=== PATIENT | female | born 1965 ===

== ENCOUNTER 2016-10-07 23:17 | Observation (INO) | payer SELFPAY ==
[2016-10-07 23:17] VITALS: BMI 29.0
[2016-10-07 23:31] VITALS: RESP 16; O2SAT 100
--- NOTE | 2016-10-08 00:42 | ED PDOC ---
HPI: Chest Pain Time Seen by Provider: 10/07/16 23:25 Chief Complaint (Nursing): Chest Pain Chief Complaint (Provider): Chest pain History Per: Patient, Family (pts daughter as per pt request) History/Exam Limitations: no limitations Onset/Duration Of Symptoms: Days Current Symptoms Are (Timing): Still Present Additional Complaint(s): The patient is a 51yo female, with hx of hypertension, DM, hypercholesterolemia , presents to the ED for evaluation of chest pressure and pain, left sided radiating to her back for the past day. Patient reports associated mild shortness of breath, nausea and reports her pain to be 6/10. She denies any cough or vomiting. Patient reports taking 1 aspirin at home with mild relief. She currently offers no additional medical complaints. Of note, patient [place] and has not followed up. PCP: [facility] Against Medical Advice - AMA Patient Left Against Medical Advice: The patient declines admission to the hospital and wishes to leave the Emergency Department. This action is against my medical advice. This decision was made with informed refusal. The patient was told that admission to the hospital is necessary. Explanation of the reasons why were discussed. The risks of leaving were explained to the patient and include, but are not limited to, worsening of known or currently unknown conditions, permanent disability and from undiagnosed or untreated conditions. The patient has the capacity to make this informed decision and understands my explanation of the current medical problem and risks of leaving. The patient voluntarily accepts these risks and signed an AMA form documenting our conversation. The patient was given the opportunity to ask questions and reconsider. The patient was encouraged to return to the Emergency Department at any time for further care. Past Medical History Reviewed: Historical Data, Nursing Documentation, Vital Signs Vital Signs: Last Vital Signs Temp 98.2 F 10/08/16 01:57 Pulse 95 H 10/08/16 01:57 Resp 16 10/08/16 01:57 BP 136/80 10/08/16 01:57 Pulse Ox 100 10/08/16 02:25 - Medical History PMH: Diabetes, HTN, Hypercholesterolemia Denies: HIV, Chronic Kidney Disease - Surgical History Surgical History: (x2) Other surgeries: tummy tucks - Family History Family History: Denies: [place], CAD - Living Arrangements Living Arrangements: With Family - Social History Current smoker - smoking cessation education provided: No Alcohol: Occasional Drugs: Denies - Home Medications Home Medications: Ambulatory Orders Medication Instructions Recorded Aspirin [Adult Low Dose Aspirin EC] 81 mg PO DAILY 11/18/15 Losartan/Hydrochlorothiazide 1 each PO DAILY 11/18/15 [Losartan-Hctz 100-25 mg Tab] metFORMIN [glucOPHAGE] 500 mg PO BID 11/18/15 - Allergies Allergies/Adverse Reactions: Allergies Allergy/AdvReac Type Severity Reaction Status Date / Time No Known Allergies Allergy Verified 12/20/15 13:49 Review of Systems ROS Statement: Except As Marked, All Systems Reviewed And Found Negative Cardiovascular: Positive for: Chest Pain Respiratory: Positive for: Shortness of Breath. Negative for: Cough Gastrointestinal: Positive for: Nausea. Negative for: Vomiting Physical Exam - Reviewed Nursing Documentation Reviewed: Yes Vital Signs Reviewed: Yes - Physical Exam Appears: Positive for: Well, Non-toxic, No Acute Distress Head Exam: Positive for: ATRAUMATIC, NORMAL INSPECTION, NORMOCEPHALIC Skin: Positive for: Normal Color, Warm, DRY Eye Exam: Positive for: EOMI, Normal appearance, PERRL Neck: Positive for: Normal, Supple Cardiovascular/Chest: Positive for: Regular Rate, Rhythm. Negative for: Murmur Respiratory: Positive for: Normal Breath Sounds. Negative for: Respiratory Distress Gastrointestinal/Abdominal: Positive for: Normal Exam, Soft. Negative for: Tenderness Extremity: Positive for: Normal ROM. Negative for: Deformity, Swelling Neurologic/Psych: Positive for: Alert, Oriented. Negative for: Motor/Sensory Deficits - Laboratory Results Result Diagrams: 10/08/16 00:37 10/08/16 00:37 - ECG O2 Sat by Pulse Oximetry: 100 (RA) Pulse Ox Interpretation: Normal Medical Decision Making Medical Decision Making: Time: 001 Impression: Rule out IA in setting of extensive cardiac history Plan: -- labs -- chest x-ray -- Aspirin 325 mg PO -- Nitrostat SL tab Reassess Time: 0145 Patient to be admitted under family practice for overnight observation of her chest pain. after resident came to the er to see pt, she decided she didnt want to stay. see ama form. she understands the risk of leaving ama invluding cardiac arrest and . Scribe Attestation: Documented by Bella Lima acting as a scribe for Coleen Dutta MD. Provider Attestation: All medical record entries made by the Scribe were at my direction and personally dictated by me. I have reviewed the chart and agree that the record accurately reflects my personal performance of the history, physical exam, medical decision making, and the department course for this patient. I have also personally directed, reviewed, and agree with the discharge instructions and disposition. Disposition - Clinical Impression Clinical Impression: Chest pain, Left against medical advice - Patient ED Disposition Is Patient to be Admitted: No - Disposition Disposition: Against Medical Advice Disposition Time: 14:00 Condition: IMPROVED
[2016-10-08 00:56] LABS: BASO # 0.1 K/uL (0.0-0.2); BASO % 0.8 % (0.0-2.0); EOS # 0.2 K/uL (0.0-0.7); EOS % 2.4 % (0.0-4.0); HEMATOCRIT 40.1 % (34.0-47.0); LYMPH # 3.7 K/uL (1.0-4.3); LYMPH % 43.9 % (20.0-40.0); MEAN CELL VOLUME 90.8 fl (81.0-99.0); MEAN CORPUSCULAR HEMOGLOBIN 30.4 pg (27.0-31.0); MEAN CORPUSCULAR HGB CONC 33.5 g/dL (33.0-37.0); MEAN PLATELET VOLUME 9.5 fl (7.2-11.7); MONO # 0.6 K/uL (0.0-0.8); NEUT # 3.9 K/uL (1.8-7.0); NEUT % 45.9 % (50.0-75.0); RED CELL DISTRIBUTION WIDTH 13.3 % (11.5-14.5); WHITE BLOOD COUNT 8.5 K/uL (4.8-10.8)
[2016-10-08 01:08] LABS: ALB/GLOB RATIO 1.3 (1.0-2.1); ALKALINE PHOSPHATASE 47 U/L (38-126); ALT/SGPT 79 U/L (9-52); AST/SGOT 41 U/L (14-36); BILIRUBIN,TOTAL 0.6 mg/dl (0.2-1.3); BLOOD UREA NITROGEN 10 mg/dl (7-17); CALCIUM 9.1 mg/dL (8.4-10.2); CARBON DIOXIDE 28 mmol/L (22-30); CHLORIDE 101 mmol/L (98-107); GFR AFRICAN-AMERICAN > 60; GLUCOSE,RANDOM 119 mg/dL (65-105); LIPASE 128 U/L (23-300); POTASSIUM 3.8 MMOL/L (3.6-5.0); SODIUM 139 mmol/l (132-148); TOTAL PROTEIN 7.9 G/DL (6.3-8.2)
[2016-10-08] MEDS ORDERED: Labetalol 5 mg/ml Inj 20ML IVP STA (01:49)
[2016-10-08 01:57] VITALS: BP 136/80; PULSE 95; TEMP 98.2
--- NOTE | 2016-10-08 08:38 | RAD ---
HISTORY: chest pain COMPARISON: 11/17/2015. TECHNIQUE: Chest PA and lateral FINDINGS: LUNGS: No active pulmonary disease. PLEURA: No significant pleural effusion identified. No pneumothorax apparent. CARDIOVASCULAR: No radiographic findings to suggest acute or significant cardiovascular disease. OSSEOUS STRUCTURES: No significant abnormalities. VISUALIZED UPPER ABDOMEN: Normal. OTHER FINDINGS: None. IMPRESSION: No active disease. No significant interval change compared to the prior examination(s). No preliminary report provided by emergency department personnel.
--- NOTE | 2016-10-08 17:43 | CARD ---
APPROVED REPORT EKG Measurement Heart [id number] <Conclusion> Normal sinus rhythm Normal ECG
== END 2016-10-08 02:55 | disposition left against medical advice (07) ==
LOC: H.ER 23:17 → H.ERHOLD 10-08 01:44
PROVIDERS: ADMIT Family Medicine Geriatric Medicine; ATTEND Family Medicine Geriatric Medicine
DX: R07.9 Chest pain, unspecified (principal); I10 Essential (primary) hypertension; E11.9 Type 2 diabetes mellitus without complications; E78.00 Pure hypercholesterolemia, unspecified

== ENCOUNTER 2017-02-17 10:39 | Day surgery (SDC) | payer SELFPAY ==
[2017-02-17] MEDS ORDERED: Lactated Ringer's 1,000 ML IV ONE (11:11)
[2017-02-17 11:27] VITALS: TEMP 97
[2017-02-17] MEDS ORDERED: Propofol 10 mg/ml Inj (20 ML) ONE (11:33)
[2017-02-17] MEDS ORDERED: Lidocaine 2% MPF (5 ml) Inj ONE (11:34)
[2017-02-17 12:19] VITALS: BP 104/67; PULSE 70; RESP 14; O2SAT 100
== END 2017-02-17 13:01 | disposition home or self-care (01) ==
LOC: H.ENDO 10:39
PROVIDERS: ATTEND Internal Medicine Gastroenterology
DX: Z12.11 Encounter for screening for malignant neoplasm of colon (principal); E11.9 Type 2 diabetes mellitus without complications; E78.5 Hyperlipidemia, unspecified; I10 Essential (primary) hypertension; K64.0 First degree hemorrhoids
CPT/HCPCS: 45378; J2704; J7120

== ENCOUNTER 2017-02-18 | Emergency (ER) | payer SELFPAY ==
[2017-02-18 00:02] VITALS: BMI 29.0
[2017-02-18 00:31] VITALS: BP 130/85; PULSE 79; RESP 17; TEMP 98.2; O2SAT 100
[2017-02-18] MEDS ORDERED: Sterile Water 10 ML IV ONE (00:32)
[2017-02-18] MEDS ORDERED: Sodium Chloride 0.9% 1,000 ML IV STA (00:32)
[2017-02-18 00:50] LABS: BASO # 0.1 K/uL (0.0-0.2); BASO % 1.1 % (0.0-2.0); EOS # 0.1 K/uL (0.0-0.7); EOS % 1.4 % (0.0-4.0); HEMATOCRIT 39.4 % (34.0-47.0); LYMPH # 3.4 K/uL (1.0-4.3); LYMPH % 39.9 % (20.0-40.0); MEAN CELL VOLUME 90.3 fl (81.0-99.0); MEAN CORPUSCULAR HEMOGLOBIN 30.3 pg (27.0-31.0); MEAN CORPUSCULAR HGB CONC 33.5 g/dL (33.0-37.0); MEAN PLATELET VOLUME 9.7 fl (7.2-11.7); MONO # 0.7 K/uL (0.0-0.8); MONO % 8.1 % (0.0-10.0); NEUT # 4.3 K/uL (1.8-7.0); NEUT % 49.5 % (50.0-75.0); NRBC % 0.2 % (0.0-0.0); RED CELL DISTRIBUTION WIDTH 13.5 % (11.5-14.5); WHITE BLOOD COUNT 8.6 K/uL (4.8-10.8)
--- NOTE | 2017-02-18 00:54 | ED PDOC ---
HPI: Abdomen Time Seen by Provider: 02/18/17 00:13 Chief Complaint (Nursing): Abdominal Pain Chief Complaint (Provider): Abdominal Pain History Per: Patient History/Exam Limitations: no limitations Onset/Duration Of Symptoms: Days (x1) Current Symptoms Are (Timing): Still Present Additional Complaint(s): Alison Jones is a 52 year old female with a past medical history of hypertension and diabetes, who presents to the ED complaining of epigastric pain x1 day. Patient had a routine colonoscopy today. States she went home afterwards and developed epigastric pain after eating rice and beans. Confirms vomiting x1. Patient reports she has been able to pass gas, but has not had a bowel movement yet. Denies fever and chills. PMD: Dr. Ling Carter MD Past Medical History Reviewed: Historical Data, Nursing Documentation, Vital Signs Vital Signs: Last Vital Signs Temp 98.2 F 02/18/17 00:13 Pulse 79 02/18/17 00:13 Resp 17 02/18/17 00:13 BP 130/85 02/18/17 00:13 Pulse Ox 100 02/18/17 04:22 - Medical History PMH: Diabetes, HTN, Hypercholesterolemia Denies: HIV, Chronic Kidney Disease - Surgical History Surgical History: (x2) - Family History Family History: Denies: [place], CAD - Home Medications Home Medications: Ambulatory Orders Medication Instructions Recorded Losartan/Hydrochlorothiazide 1 each PO DAILY 11/18/15 [Losartan-Hctz 100-25 mg Tab] metFORMIN [glucOPHAGE] 500 mg PO BID 11/18/15 Amoxicillin [Amoxil 250 mg Cap] 250 mg PO DAILY 02/17/17 Atorvastatin [Lipitor] 40 mg PO DAILY 02/17/17 Clarithromycin [Biaxin Filmtab] 500 mg PO DAILY 02/17/17 Omeprazole 20 mg PO DAILY 02/17/17 Simethicone [Gas Relief] 80 mg PO BID #30 tab.chew 02/18/17 Sod Phos,M-B/Na Phos,Di-Ba [Fleet 135 ml RC DAILY #3 enema 02/18/17 Enema] - Allergies Allergies/Adverse Reactions: Allergies Allergy/AdvReac Type Severity Reaction Status Date / Time No Known Allergies Allergy Verified 12/20/15 13:49 Review of Systems ROS Statement: Except As Marked, All Systems Reviewed And Found Negative Constitutional: Negative for: Fever, Chills Gastrointestinal: Positive for: Vomiting (x1), Abdominal Pain (epigastric) Physical Exam - Reviewed Nursing Documentation Reviewed: Yes Vital Signs Reviewed: Yes - Physical Exam Appears: Positive for: Non-toxic, No Acute Distress Head Exam: Positive for: ATRAUMATIC, NORMAL INSPECTION, NORMOCEPHALIC Skin: Positive for: Normal Color, Warm, DRY Eye Exam: Positive for: EOMI, Normal appearance, PERRL Neck: Positive for: Normal, Painless ROM Cardiovascular/Chest: Positive for: Regular Rate, Rhythm. Negative for: Murmur Respiratory: Positive for: Normal Breath Sounds. Negative for: Respiratory Distress Gastrointestinal/Abdominal: Positive for: Soft, Tenderness (epigastric). Negative for: Guarding, Rebound Back: Positive for: Normal Inspection. Negative for: L CVA Tenderness, R CVA Tenderness, Vertebral Tenderness Extremity: Positive for: Normal ROM. Negative for: Pedal Edema, Deformity Neurologic/Psych: Positive for: Alert, Oriented (x3). Negative for: Motor/ Sensory Deficits - Laboratory Results Result Diagrams: 02/18/17 00:45 02/18/17 00:45 - ECG O2 Sat by Pulse Oximetry: 100 (RA) Pulse Ox Interpretation: Normal Medical Decision Making Medical Decision Making: Time: 00:31 Initial Impression: Gastritis vs pancreatitis vs irritation from colonoscopy Plan: --CMP --Lipase --CBC w/ differential --Sodium Chloride 0.9% 1,000 ml IV --Protonix Inj 40 mg IVP --IV Insertion --Reevaluation Time: 04:17 --Upon provider reevaluation patient is feeling better, is medically stable, and requires no further treatment in the ED at this time. Patient will be discharged with Rx for Simethicone and a Fleet enema. Counseling was provided and all questions were answered regarding diagnosis and need for follow up with PMD. There is agreement to discharge plan. Return if symptoms persist or worsen. Scribe Attestation: Documented by Luigi Elena acting as a scribe for Que Gagnon MD. Scribe Attestation: All medical record entries made by the Scribe were at my direction and personally dictated by me. I have reviewed the chart and agree that the record accurately reflects my personal performance of the history, physical exam, medical decision making, and the department course for this patient. I have also personally directed, reviewed, and agree with the discharge instructions and disposition. Disposition - Clinical Impression Clinical Impression: Bloating - Patient ED Disposition Is Patient to be Admitted: No Counseled Patient/Family Regarding: Diagnosis, Need For Followup, Rx Given - Disposition Referrals: Ling Carter MD [Primary Care Provider] - Disposition: Routine/Home Disposition Time: 04:18 Condition: STABLE Prescriptions: Simethicone [Gas Relief] 80 mg PO BID #30 tab.chew Sod Phos,M-B/Na Phos,Di-Ba [Fleet Enema] 135 ml RC DAILY #3 enema Instructions: Gas and Bloating (ED) Forms: [employer] (Barbadian) Print Language: CHINESE
[2017-02-18 01:01] LABS: ALB/GLOB RATIO 1.3 (1.0-2.1); ALKALINE PHOSPHATASE 47 U/L (38-126); ALT/SGPT 90 U/L (9-52); AST/SGOT 52 U/L (14-36); BILIRUBIN,TOTAL 0.6 mg/dl (0.2-1.3); BLOOD UREA NITROGEN 9 mg/dl (7-17); CALCIUM 9.4 mg/dL (8.4-10.2); CARBON DIOXIDE 31 mmol/L (22-30); CHLORIDE 99 mmol/L (98-107); GFR AFRICAN-AMERICAN > 60; GLUCOSE,RANDOM 169 mg/dL (65-105); LIPASE 185 U/L (23-300); POTASSIUM 4.1 MMOL/L (3.6-5.0); SODIUM 140 mmol/l (132-148); TOTAL PROTEIN 8.1 G/DL (6.3-8.2)
[2017-02-18] MEDS ORDERED: Simethicone 40 mg/0.6 ml Liquid (30 ml) PO STA ×2 (03:11)
[2017-02-18] MEDS ORDERED: Simethicone 80 mg Chewtab PO STA (03:28)
== END 2017-02-18 04:24 | disposition home or self-care (01) ==
LOC: H.ER
DX: R14.0 Abdominal distension (gaseous) (principal); E11.9 Type 2 diabetes mellitus without complications; E78.00 Pure hypercholesterolemia, unspecified; I10 Essential (primary) hypertension; Z79.84 Long term (current) use of oral hypoglycemic drugs
CPT/HCPCS: 80053; 82948; 83690; 85025; 96374; 96375; 99283; C9113; J7040

== ENCOUNTER 2017-04-18 20:42 | Observation (INO) | payer SELFPAY ==
[2017-04-18 20:42] VITALS: BMI 29.0
[2017-04-18] MEDS ORDERED: Sodium Chloride 0.9% 1,000 ML IV STA (21:42)
--- NOTE | 2017-04-18 22:02 | ED PDOC ---
Syncope/Near Syncope/Dizziness Additional Complaint(s): 52 yo female pmhx DMII, HTN, hyperlipidemia and gastritis presents to ED w/ c/o lightheadedness and generalized weakness since this afternoon. Pt reports she felt weak all day today. Pt reports pressure on her chest after dizziness. Denies LOC or headache. Denies dyspnea, cough, rhinorrhea, sore throat, or fever. Pt also reports dysuria and hematuria that started a week ago but resolved on its own but symptoms returned yesterday. Reports lower abdominal pain and felt nauseous last night. Denies any vomiting or flank pain. PMD: Dr. Carter (last visit on 03/30/17). <Sultan Anant - Last Filed: 04/19/17 02:23> <Que Gagnon - Last Filed: 04/19/17 07:27> Time Seen by Provider: 04/18/17 20:59 Chief Complaint (Nursing): Dizziness/Lightheaded Supervising Attending Note - Attestation: I have personally seen and examined this patient.: Yes I have fully participated in the care of the patient.: Yes I have reviewed all pertinent clinical information: Yes <Que Gagnon - Last Filed: 04/19/17 07:27> Past Medical History Vital Signs: Last Vital Signs Temp 98.2 F 04/18/17 20:43 Pulse 102 H 04/18/17 20:43 Resp 16 04/18/17 20:43 BP 171/81 H 04/18/17 20:43 Pulse Ox 98 04/18/17 20:43 - Medical History PMH: Diabetes, HTN, Hypercholesterolemia Denies: HIV, Chronic Kidney Disease - Surgical History Surgical History: (x2) - Family History Family History: Denies: [place], CAD - Social History Current smoker - smoking cessation education provided: No Alcohol: None Drugs: Denies <Sultan Anant - Last Filed: 04/19/17 02:23> Vital Signs: Last Vital Signs Temp 98.0 F 04/19/17 06:34 Pulse 72 04/19/17 06:34 Resp 14 04/19/17 06:34 BP 128/82 04/19/17 06:34 Pulse Ox 98 04/19/17 06:34 <Que Gagnon - Last Filed: 04/19/17 07:27> - Home Medications Home Medications: Ambulatory Orders Medication Instructions Recorded Losartan/Hydrochlorothiazide 1 each PO DAILY 11/18/15 [Losartan-Hctz 100-25 mg Tab] metFORMIN [glucOPHAGE] 500 mg PO BID 11/18/15 - Allergies Allergies/Adverse Reactions: Allergies Allergy/AdvReac Type Severity Reaction Status Date / Time No Known Allergies Allergy Verified 04/18/17 20:43 Review of Systems Constitutional: Negative for: Fever Eyes: Negative for: Vision Change Cardiovascular: Negative for: Palpitations Respiratory: Negative for: Cough, Shortness of Breath Gastrointestinal: Positive for: Nausea, Abdominal Pain. Negative for: Vomiting Genitourinary Female: Positive for: Dysuria, Hematuria Skin: Negative for: Rash Neurological: Negative for: Headache <Sultan Anant - Last Filed: 04/19/17 02:23> Physical Exam - Physical Exam Appears: Positive for: No Acute Distress Head Exam: Positive for: ATRAUMATIC, NORMOCEPHALIC Eye Exam: Positive for: EOMI, PERRL ENT: Positive for: Normal ENT Inspection. Negative for: Pharyngeal Erythema Neck: Positive for: Normal Cardiovascular/Chest: Positive for: Regular Rate, Rhythm. Negative for: Murmur Respiratory: Positive for: Normal Breath Sounds. Negative for: Crackles, Wheezing Gastrointestinal/Abdominal: Positive for: Bowel Sounds, Soft, Tenderness ( Moderate suprapubic tenderness) Back: Negative for: L CVA Tenderness, R CVA Tenderness Extremity: Positive for: Normal ROM Neurologic/Psych: Positive for: Alert, life skills specialist II-XII, Oriented. Negative for: Motor/Sensory Deficits, Aphasia, Facial Droop <Sultan Anant - Last Filed: 04/19/17 02:23> - Laboratory Results Result Diagrams: 04/18/17 22:20 04/18/17 22:20 - ECG ECG: Positive for: Interpreted By Me ECG Rhythm: Positive for: Normal QRS, Normal ST Segment. Negative for: ST/T Changes O2 Sat by Pulse Oximetry: 98 - Radiology X-Ray: Interpreted by Me X-Ray Interpretation: No Acute Disease - Progress ED Course And Treament: Assessment: 52 yo female pmhx DMII, HTN, hyperlipidemia presents with c/o lightheadedness, generalized weakness x 1 day and dysuria and suprapubic pain x 1 week. Plan: EKG TROPONIN I CXR BMP CBC PT/INR UA Rapid influenza test NS 0.9% 1000 cc bolus Re-evaluation Case d/w ED attending Dr. Gagnon Re-evaluation: 23:30 on 04/18/17 Pt reports she still has chest pressure. EKG: NSR, no acute ST/T wave changes. Troponin x1 negative. Pt will be admitted under family medicine service to telemetry for further cardiac observation and to r/o ACS. Case d/w with ED attending Dr. Gagnon. <Sultan Anant - Last Filed: 04/19/17 02:23> - Laboratory Results Result Diagrams: 04/18/17 22:20 04/18/17 22:20 <Que Gagnon - Last Filed: 04/19/17 07:27> Disposition - Patient ED Disposition Is Patient to be Admitted: Yes - Disposition Disposition Time: 02:29 <Sultan Anant - Last Filed: 04/19/17 02:23> <Que Gagnon - Last Filed: 04/19/17 07:27> - Clinical Impression Clinical Impression: Dizziness, Chest pain - Disposition Condition: FAIR
[2017-04-18 22:26] LABS: BASO # 0.1 K/uL (0.0-0.2); BASO % 1.5 % (0.0-2.0); EOS # 0.1 K/uL (0.0-0.7); EOS % 1.4 % (0.0-4.0); HEMOGLOBIN 12.7 g/dL (12.0-16.0); LYMPH # 2.6 K/uL (1.0-4.3); LYMPH % 36.3 % (20.0-40.0); MEAN CELL VOLUME 89.3 fl (81.0-99.0); MEAN CORPUSCULAR HEMOGLOBIN 29.8 pg (27.0-31.0); MEAN CORPUSCULAR HGB CONC 33.4 g/dL (33.0-37.0); MEAN PLATELET VOLUME 9.4 fl (7.2-11.7); MONO # 0.6 K/uL (0.0-0.8); MONO % 8.2 % (0.0-10.0); NEUT # 3.8 K/uL (1.8-7.0); NEUT % 52.6 % (50.0-75.0); NRBC % 0.1 % (0.0-0.0); RBC 4.26 Mil/uL (3.80-5.20); RED CELL DISTRIBUTION WIDTH 13.3 % (11.5-14.5); WHITE BLOOD COUNT 7.2 K/uL (4.8-10.8)
[2017-04-18 22:38] LABS: BLOOD UREA NITROGEN 14 mg/dl (7-17); CALCIUM 9.1 mg/dL (8.4-10.2); GFR AFRICAN-AMERICAN > 60; GFR NON-AFRICAN AMERICAN > 60
[2017-04-18 23:10] LABS: SQUAMOUS EPITHIAL 3 /hpf (0-5); URINE BILIRUBIN NEGATIVE (NEGATIVE); URINE BLOOD SMALL (NEGATIVE); URINE CLARITY SLIGHTY-CLOUDY (Clear); URINE COLOR STRAW (YELLOW); URINE GLUCOSE (UA) NEG (Normal); URINE LEUKOCYTE ESTERASE SMALL Leu/uL (Negative); URINE NITRATE NEGATIVE (NEGATIVE); URINE PROTEIN NEGATIVE (NEGATIVE); URINE UROBILINOGEN 0.2-1.0 mg/dL (0.2-1.0)
[2017-04-18 23:57] LABS: PROTHROMBIN TIME 11.1 Seconds (9.8-13.1)
[2017-04-19 00:17] LABS: PARTIAL THROMBOPLASTIN TIME 30.7 Seconds (25.6-37.1)
--- NOTE | 2017-04-19 00:58 | CP.PCM.HP ---
Addendum entered and electronically signed by Windy Guo MD 04/19/17 03:04 : Patient has had multiple admission for ruling out of chest pain. Patient had an Echo done in September of 2015 w/ an EF of 65-70%. Nuclear perfusion scan was done in September 2013, in which patient was able to reach taget HR and test showed normal perfusion w/ no significant EKG changes. She was seen by cardio Dr. Gandhi on 10/2016, he had reassured patient that her chest pain is benign and there is no further testing that needs to be done. Chest pain seems to be anxiety provoked. Original Note: <Windy Guo - Last Filed: 04/19/17 01:21> History of Present Illness - History of Present Illness History of Present Illness: 52 YO F w/ PMH of DM II, HTN, hyperlipidemia and gastritis presents to the ED for light headedness and weakness after she drank some soup with her family. Nobody else had similar symptoms. Denies any falls or head trauma. Patient also started having some chest pressure, rates it at a 4/10 does not radiate anywhere. Denies any palpitation, SOB, LOC or headache. - Patient has been having some burning with urination which started last week, she has also noticed a increase in frequency, and noticed some blood in the urine. Denies any chills, fevers, nausea or vomiting. PMH: DM2, HLD, HTN, gastritis PSH: C section x 2 Allergies: Denies FH: non contributory PMD. Dr. Carter Present on Admission - Present on Admission Any Indicators Present on Admission: No Review of Systems - Review of Systems All systems: reviewed and no additional remarkable complaints except Past Patient History - Past Medical History & Family History Past Medical History?: Yes - Past Social History Smoking Status: Never Smoked - CARDIAC Hx Hypercholesterolemia: Yes Hx Hypertension: Yes - PULMONARY Hx Respiratory Disorders: No - NEUROLOGICAL Hx Neurological Disorder: No - HEENT Hx HEENT Problems: No - RENAL Hx Chronic Kidney Disease: No - ENDOCRINE/METABOLIC Hx Endocrine Disorders: Yes Hx Diabetes Mellitus Type 2: Yes - HEMATOLOGICAL/ONCOLOGICAL Hx Human Immunodeficiency Virus (HIV): No - INTEGUMENTARY Hx Dermatological Problems: No - MUSCULOSKELETAL/RHEUMATOLOGICAL Hx Musculoskeletal Disorders: No - GASTROINTESTINAL Hx Gastrointestinal Disorders: No - GENITOURINARY/GYNECOLOGICAL Hx Genitourinary Disorders: No - PSYCHIATRIC Hx Emotional Abuse: No Hx Physical Abuse: No Hx Substance Use: No - SURGICAL HISTORY Hx Hysterectomy: Yes Other/Comment: ABDOMINAL PLASTY, BLADDER SURGERY - ANESTHESIA Hx Anesthesia: Yes Hx Anesthesia Reactions: No Hx Malignant Hyperthermia: No Meds Allergies/Adverse Reactions: Allergies Allergy/AdvReac Type Severity Reaction Status Date / Time No Known Allergies Allergy Verified 04/18/17 20:43 Physical Exam - Constitutional Appears: No Acute Distress - Head Exam Head Exam: NORMAL INSPECTION - Eye Exam Eye Exam: Normal appearance - ENT Exam ENT Exam: Mucous Membranes Moist - Respiratory Exam Respiratory Exam: Clear to Auscultation Bilateral, NORMAL BREATHING PATTERN. absent: Rhonchi, Wheezes - Cardiovascular Exam Cardiovascular Exam: REGULAR RHYTHM, +S1, +S2 Additional comments: slight reproducible tenderness on left side of chest 4th intercostal region - GI/Abdominal Exam GI & Abdominal Exam: Normal Bowel Sounds, Soft, Tenderness (suprapubic tenderness) - Extremities Exam Extremities exam: Positive for: normal inspection. Negative for: calf tenderness - Neurological Exam Neurological exam: Alert, CN II-XII Intact, Normal Gait, Oriented x3 - Skin Skin Exam: Normal Color, Warm Results - Vital Signs Recent Vital Signs: Last Vital Signs Temp 98.2 F 04/18/17 20:43 Pulse 76 04/19/17 00:17 Resp 16 04/19/17 00:17 BP 135/77 04/19/17 00:17 Pulse Ox 100 04/19/17 00:17 - Labs Result Diagrams: 04/18/17 22:20 04/18/17 22:20 Labs: Laboratory Results - last 24 hr 04/18/17 04/18/17 04/18/17 22:20 22:20 22:20 WBC 7.2 RBC 4.26 Hgb 12.7 Hct 38.1 MCV 89.3 MCH 29.8 MCHC 33.4 RDW 13.3 Plt Count 261 MPV 9.4 Neut % (Auto) 52.6 Lymph % (Auto) 36.3 [place] % (Auto) 8.2 Eos % (Auto) 1.4 Baso % (Auto) 1.5 Neut # (Auto) 3.8 Lymph # (Auto) 2.6 [place] # (Auto) 0.6 Eos # (Auto) 0.1 Baso # (Auto) 0.1 PT 11.1 INR 1.0 APTT 30.7 Sodium 142 Potassium 4.1 Chloride 105 Carbon Dioxide 28 Anion Gap 13 BUN 14 Creatinine 0.7 Est GFR ( Amer) > 60 Est GFR (Non-Af Amer) > 60 Random Glucose 104 Calcium 9.1 Troponin I < 0.0120 Urine Color Urine Clarity Urine pH Ur Specific [place] Urine Protein Urine Glucose (UA) Urine Ketones Urine Blood Urine Nitrate Urine Bilirubin Urine Urobilinogen Ur Leukocyte Esterase Urine RBC (Auto) Urine Microscopic WBC Ur Squamous Epith Cells 04/18/17 22:20 WBC RBC Hgb Hct MCV MCH MCHC RDW Plt Count MPV Neut % (Auto) Lymph % (Auto) [place] % (Auto) Eos % (Auto) Baso % (Auto) Neut # (Auto) Lymph # (Auto) [place] # (Auto) Eos # (Auto) Baso # (Auto) PT INR APTT Sodium Potassium Chloride Carbon Dioxide Anion Gap BUN Creatinine Est GFR ( Amer) Est GFR (Non-Af Amer) Random Glucose Calcium Troponin I Urine Color Straw Urine Clarity Slighty-cloudy Urine pH 6.0 Ur Specific [place] 1.009 Urine Protein Negative Urine Glucose (UA) Neg Urine Ketones Negative Urine Blood Small Urine Nitrate Negative Urine Bilirubin Negative Urine Urobilinogen 0.2-1.0 Ur Leukocyte Esterase Small Urine RBC (Auto) 6 H Urine Microscopic WBC 25 H Ur Squamous Epith Cells 3 Assessment & Plan - Assessment and Plan (Free Text) Assessment: 52 YO F presents to the ER with chest pressure and burning with urination 1) Chest pressure ( resolved) - Troponin x 1 neg - EKG : Normal sinus rhythum - F/U with troponin 2) Dysuria and cystitis - C/W Cipro 500mg x 3 days 3) DM2 - Continue with home meds 4) HTN - C/W home meds 5) DVE prophylaxis SCD and ambulation <Josefina Neely - Last Filed: 04/19/17 09:02> Results - Vital Signs Recent Vital Signs: Last Vital Signs Temp 98.0 F 04/19/17 06:34 Pulse 72 04/19/17 06:34 Resp 14 04/19/17 06:34 BP 128/82 04/19/17 06:34 Pulse Ox 98 04/19/17 06:34 - Labs Result Diagrams: 04/18/17 22:20 04/18/17 22:20 Labs: Laboratory Results - last 24 hr 04/18/17 04/18/17 04/18/17 22:20 22:20 22:20 WBC 7.2 RBC 4.26 Hgb 12.7 Hct 38.1 MCV 89.3 MCH 29.8 MCHC 33.4 RDW 13.3 Plt Count 261 MPV 9.4 Neut % (Auto) 52.6 Lymph % (Auto) 36.3 [place] % (Auto) 8.2 Eos % (Auto) 1.4 Baso % (Auto) 1.5 Neut # (Auto) 3.8 Lymph # (Auto) 2.6 [place] # (Auto) 0.6 Eos # (Auto) 0.1 Baso # (Auto) 0.1 PT 11.1 INR 1.0 APTT 30.7 Sodium 142 Potassium 4.1 Chloride 105 Carbon Dioxide 28 Anion Gap 13 BUN 14 Creatinine 0.7 Est GFR ( Amer) > 60 Est GFR (Non-Af Amer) > 60 POC Glucose (mg/dL) Random Glucose 104 Calcium 9.1 Troponin I < 0.0120 Urine Color Urine Clarity Urine pH Ur Specific [place] Urine Protein Urine Glucose (UA) Urine Ketones Urine Blood Urine Nitrate Urine Bilirubin Urine Urobilinogen Ur Leukocyte Esterase Urine RBC (Auto) Urine Microscopic WBC Ur Squamous Epith Cells Influenza Typ A,B (EIA) 04/18/17 04/19/17 04/19/17 22:20 00:07 05:50 WBC RBC Hgb Hct MCV MCH MCHC RDW Plt Count MPV Neut % (Auto) Lymph % (Auto) [place] % (Auto) Eos % (Auto) Baso % (Auto) Neut # (Auto) Lymph # (Auto) [place] # (Auto) Eos # (Auto) Baso # (Auto) PT INR APTT Sodium Potassium Chloride Carbon Dioxide Anion Gap BUN Creatinine Est GFR ( Amer) Est GFR (Non-Af Amer) POC Glucose (mg/dL) Random Glucose Calcium Troponin I < 0.0120 Urine Color Straw Urine Clarity Slighty-cloudy Urine pH 6.0 Ur Specific [place] 1.009 Urine Protein Negative Urine Glucose (UA) Neg Urine Ketones Negative Urine Blood Small Urine Nitrate Negative Urine Bilirubin Negative Urine Urobilinogen 0.2-1.0 Ur Leukocyte Esterase Small Urine RBC (Auto) 6 H Urine Microscopic WBC 25 H Ur Squamous Epith Cells 3 Influenza Typ A,B (EIA) Negative for flu a/b 04/19/17 08:51 WBC RBC Hgb Hct MCV MCH MCHC RDW Plt Count MPV Neut % (Auto) Lymph % (Auto) [place] % (Auto) Eos % (Auto) Baso % (Auto) Neut # (Auto) Lymph # (Auto) [place] # (Auto) Eos # (Auto) Baso # (Auto) PT INR APTT Sodium Potassium Chloride Carbon Dioxide Anion Gap BUN Creatinine Est GFR ( Amer) Est GFR (Non-Af Amer) POC Glucose (mg/dL) 107 Random Glucose Calcium Troponin I Urine Color Urine Clarity Urine pH Ur Specific [place] Urine Protein Urine Glucose (UA) Urine Ketones Urine Blood Urine Nitrate Urine Bilirubin Urine Urobilinogen Ur Leukocyte Esterase Urine RBC (Auto) Urine Microscopic WBC Ur Squamous Epith Cells Influenza Typ A,B (EIA) Attending/Attestation - Attestation Notes (Text): 04/19/17 09:01 ATTENDING NOTE - ATTESTATION CHART REVIEWED. CASE DISCUSSED AT LENGTH WITH MARKO. AGREE WITH PLAN TO ADMIT FOR SERIAL EKG/TROPONINS WELL ANTIOBIOTIC FOR UTI.
[2017-04-19 06:35] VITALS: TEMP 98
[2017-04-19] MEDS ORDERED: Pantoprazole 20 mg EC Tab PO SCH (09:00)
--- NOTE | 2017-04-19 11:12 | CP.PCM.DIS ---
<Deep Brasher - Last Filed: 04/19/17 11:09> Provider - Provider Date of Admission: 04/18/17 22:52 Attending physician: Josefina Neely MD Time Spent in preparation of Discharge (in minutes): 25 Hospital Course - Lab Results Lab Results: Most Recent Lab Values WBC 7.2 K/uL (4.8-10.8) 04/18/17 22:20 RBC 4.26 Mil/uL (3.80-5.20) 04/18/17 22:20 Hgb 12.7 g/dL (12.0-16.0) 04/18/17 22:20 Hct 38.1 % (34.0-47.0) 04/18/17 22:20 MCV 89.3 fl (81.0-99.0) 04/18/17 22:20 MCH 29.8 pg (27.0-31.0) 04/18/17 22:20 MCHC 33.4 g/dL (33.0-37.0) 04/18/17 22:20 RDW 13.3 % (11.5-14.5) 04/18/17 22:20 Plt Count 261 K/uL (130-400) 04/18/17 22:20 MPV 9.4 fl (7.2-11.7) 04/18/17 22:20 Neut % (Auto) 52.6 % (50.0-75.0) 04/18/17 22:20 Lymph % (Auto) 36.3 % (20.0-40.0) 04/18/17:20 [place] % (Auto) 8.2 % (0.0-10.0) 04/18/17 22:20 Eos % (Auto) 1.4 % (0.0-4.0) 04/18/17 22:20 Baso % (Auto) 1.5 % (0.0-2.0) 04/18/17 22:20 Neut # (Auto) 3.8 K/uL (1.8-7.0) 04/18/17 22:20 Lymph # (Auto) 2.6 K/uL (1.0-4.3) 04/18/17 22:20 [place] # (Auto) 0.6 K/uL (0.0-0.8) 02/10/18 22:20 Eos # (Auto) 0.1 K/uL (0.0-0.7) 04/18/17 22:20 Baso # (Auto) 0.1 K/uL (0.0-0.2) 04/18/17 22:20 PT 11.1 Seconds (9.8-13.1) 04/18/17 22:20 INR 1.0 (0.9-1.2) 04/18/17 22:20 APTT 30.7 Seconds (25.6-37.1) 04/18/17 22:20 Sodium 142 mmol/l (132-148) 04/18/17 22:20 Potassium 4.1 MMOL/L (3.6-5.0) 04/18/17 22:20 Chloride 105 mmol/L (98-107) 04/18/17 22:20 Carbon Dioxide 28 mmol/L (22-30) 04/18/17 22:20 Anion Gap 13 (10-20) 04/18/17 22:20 BUN 14 mg/dl (7-17) 04/18/17 22:20 Creatinine 0.7 mg/dl (0.7-1.2) 04/18/17 22:20 Est GFR ( Amer) > 60 04/18/17 22:20 Est GFR (Non-Af Amer) > 60 04/18/17 22:20 POC Glucose (mg/dL) 107 mg/dL (65-110) 04/19/17 08:51 Random Glucose 104 mg/dL (65-105) 04/18/17 22:20 Calcium 9.1 mg/dL (8.4-10.2) 04/18/17 22:20 Troponin I < 0.0120 ng/mL (0.00-0.120) 04/19/17 05:50 Urine Color Straw (YELLOW) 04/18/17 22:20 Urine Clarity Slighty-cloudy (Clear) 04/18/17 22:20 Urine pH 6.0 (5.0-8.0) 04/18/17 22:20 Ur Specific [place] 1.009 (1.003-1.030) 04/18/17 22:20 Urine Protein Negative mg/dL (NEGATIVE) 04/18/17 22:20 Urine Glucose (UA) Neg mg/dL (Normal) 04/18/17 22:20 Urine Ketones Negative mg/dL (NEGATIVE) 04/18/17 22:20 Urine Blood Small (NEGATIVE) 04/18/17 22:20 Urine Nitrate Negative (NEGATIVE) 04/18/17 22:20 Urine Bilirubin Negative (NEGATIVE) 04/18/17 22:20 Urine Urobilinogen 0.2-1.0 mg/dL (0.2-1.0) 04/18/17 22:20 Ur Leukocyte Esterase Small Jessica/uL (Negative) 04/18/17 22:20 Urine RBC (Auto) 6 /hpf (0-3) H 04/18/17 22:20 Urine Microscopic WBC 25 /hpf (0-5) H 04/18/17 22:20 Ur Squamous Epith Cells 3 /hpf (0-5) 04/18/17 22:20 Influenza Typ A,B (EIA) Negative for flu a/b (NEGATIVE) 04/19/17 00:07 - Hospital Course Hospital Course: 52 YO F w/ PMH of DM II, HTN, hyperlipidemia and gastritis presented to the ED for light headed, chest discomfort and weakness. Symptoms resolved shortly after being evaluated in the ER. ACS r/o. UTI started on ciprofloxacin 500mg PO qD x 3 days. Dc with one day supply. Continue home meds. Pt to f/u w/ Dr. Carter in the clinic tomorrow. Discharge Exam - Head Exam Head Exam: ATRAUMATIC, NORMOCEPHALIC Discharge Plan - Discharge Medications Prescriptions: Atorvastatin [Lipitor] 40 mg PO DAILY #30 tab Ciprofloxacin [Cipro] 500 mg PO DAILY #1 tab metFORMIN [glucOPHAGE] 500 mg PO BID #60 tab Pantoprazole [Protonix EC Tab] 20 mg PO DAILY #30 ect - Follow Up Plan Condition: FAIR Disposition: HOME/ ROUTINE Patient education suggested?: Yes Instructions: Chest Pain (ED) <Josefina Neely - Last Filed: 04/20/17 10:09> Provider - Provider Date of Admission: 04/18/17 22:52 Attending physician: Josefina Neely MD Primary care physician: ATTENDING NOTE ATTESTATION PATIENT SEEN AND EXAMINED. CASE DISCUSSED WITH RESIDENT. AGREE WITH FINDINGS AND PLAN. Hospital Course - Lab Results Lab Results: Micro Results 04/19/17 00:05 Urine,Clean Catch Urine Culture - Final No Growth (<1,000 CFU/ML) Most Recent Lab Values WBC 7.2 K/uL (4.8-10.8) 04/18/17:20 RBC 4.26 Mil/uL (3.80-5.20) 04/18/17 22:20 Hgb 12.7 g/dL (12.0-16.0) 04/18/17 22:20 Hct 38.1 % (34.0-47.0) 04/18/17: MCV 89.3 fl (81.0-99.0) 04/18/17 22: MCH 29.8 pg (27.0-31.0) 04/18/17: MCHC 33.4 g/dL (33.0-37.0) 04/18/17: RDW 13.3 % (11.5-14.5) 04/18/17: Plt Count 261 K/uL (130-400) 04/18/17: MPV 9.4 fl (7.2-11.7) 04/18/17:20 Neut % (Auto) 52.6 % (50.0-75.0) 04/18/17 22:20 Lymph % (Auto) 36.3 % (20.0-40.0) 04/18/17:20 [place] % (Auto) 8.2 % (0.0-10.0) 04/18/17:20 Eos % (Auto) 1.4 % (0.0-4.0) 04/18/17: Baso % (Auto) 1.5 % (0.0-2.0) 04/18/17:20 Neut # (Auto) 3.8 K/uL (1.8-7.0) 04/18/17:20 Lymph # (Auto) 2.6 K/uL (1.0-4.3) 04/18/17:20 [place] # (Auto) 0.6 K/uL (0.0-0.8) 04/18/17 22:20 Eos # (Auto) 0.1 K/uL (0.0-0.7) 04/18/17 22:20 Baso # (Auto) 0.1 K/uL (0.0-0.2) 04/18/17 22:20 PT 11.1 Seconds (9.8-13.1) 04/18/17 22:20 INR 1.0 (0.9-1.2) 04/18/17 22:20 APTT 30.7 Seconds (25.6-37.1) 04/18/17 22:20 Sodium 142 mmol/l (132-148) 04/18/17 22:20 Potassium 4.1 MMOL/L (3.6-5.0) 04/18/17 22:20 Chloride 105 mmol/L (98-107) 04/18/17 22:20 Carbon Dioxide 28 mmol/L (22-30) 04/18/17 22:20 Anion Gap 13 (10-20) 04/18/17 22:20 BUN 14 mg/dl (7-17) 04/18/17 22:20 Creatinine 0.7 mg/dl (0.7-1.2) 04/18/17 22:20 Est GFR ( Amer) > 60 04/18/17 22:20 Est GFR (Non-Af Amer) > 60 04/18/17 22:20 POC Glucose (mg/dL) 107 mg/dL (65-110) 04/19/17 08:51 Random Glucose 104 mg/dL (65-105) 04/18/17 22:20 Calcium 9.1 mg/dL (8.4-10.2) 04/18/17 22:20 Troponin I < 0.0120 ng/mL (0.00-0.120) 04/19/17 05:50 Urine Color Straw (YELLOW) 04/18/17 22:20 Urine Clarity Slighty-cloudy (Clear) 04/18/17 22:20 Urine pH 6.0 (5.0-8.0) 04/18/17 22:20 Ur Specific [place] 1.009 (1.003-1.030) 04/18/17 22:20 Urine Protein Negative mg/dL (NEGATIVE) 04/18/17 22:20 Urine Glucose (UA) Neg mg/dL (Normal) 04/18/17 22:20 Urine Ketones Negative mg/dL (NEGATIVE) 04/18/17 22:20 Urine Blood Small (NEGATIVE) 04/18/17 22:20 Urine Nitrate Negative (NEGATIVE) 04/18/17 22:20 Urine Bilirubin Negative (NEGATIVE) 04/18/17 22:20 Urine Urobilinogen 0.2-1.0 mg/dL (0.2-1.0) 04/18/17 22:20 Ur Leukocyte Esterase Small Jessica/uL (Negative) 04/18/17 22:20 Urine RBC (Auto) 6 /hpf (0-3) H 04/18/17 22:20 Urine Microscopic WBC 25 /hpf (0-5) H 04/18/17 22:20 Ur Squamous Epith Cells 3 /hpf (0-5) 04/18/17 22:20 Influenza Typ A,B (EIA) Negative for flu a/b (NEGATIVE) 04/19/17 00:07
[2017-04-19 11:27] VITALS: BP 117/70; PULSE 73; RESP 18; O2SAT 99
--- NOTE | 2017-04-19 13:46 | RAD ---
HISTORY: cp COMPARISON: 10/08/2016 TECHNIQUE: Chest PA and lateral FINDINGS: LUNGS: No active pulmonary disease. PLEURA: No significant pleural effusion identified. No pneumothorax apparent. CARDIOVASCULAR: Normal. OSSEOUS STRUCTURES: No significant abnormalities. VISUALIZED UPPER ABDOMEN: Normal. OTHER FINDINGS: None. IMPRESSION: No active disease.
--- NOTE | 2017-04-20 07:28 | CARD ---
APPROVED REPORT EKG Measurement Heart [id number] <Conclusion> Normal sinus rhythm Septal infarct, age undetermined Abnormal ECG
--- NOTE | 2017-04-20 07:29 | CARD ---
APPROVED REPORT EKG Measurement Heart [id number] <Conclusion> Normal sinus rhythm Normal ECG
== END 2017-04-19 11:45 | disposition home or self-care (01) ==
LOC: H.ER 20:42 → H.ERHOLD 22:52
PROVIDERS: ADMIT Emergency Medicine; ATTEND Emergency Medicine
DX: R07.89 Other chest pain (principal); N30.91 Cystitis, unspecified with hematuria; Z90.710 Acquired absence of both cervix and uterus; E78.5 Hyperlipidemia, unspecified; K29.70 Gastritis, unspecified, without bleeding; Z79.84 Long term (current) use of oral hypoglycemic drugs; E11.9 Type 2 diabetes mellitus without complications; E78.00 Pure hypercholesterolemia, unspecified; I10 Essential (primary) hypertension
CPT/HCPCS: 71046; 80048; 81003; 82948; 84484; 85025; 85610; 85730; 87086; 87804; 93005; 96360; 96361; 99285; G0378; J2765; J7040

== ENCOUNTER 2017-09-27 22:25 | Emergency (ER) | payer SELFPAY ==
[2017-09-27 22:25] VITALS: BMI 29.0
[2017-09-27 22:38] VITALS: PULSE 69; RESP 18; TEMP 97.8; O2SAT 100
--- NOTE | 2017-09-28 00:02 | ED PDOC ---
Syncope/Near Syncope/Dizziness Time Seen by Provider: 09/27/17 22:40 Chief Complaint (Nursing): Dizziness/Lightheaded Chief Complaint (Provider): Dizziness/Lightheaded History Per: Patient History/Exam Limitations: no limitations Onset/Duration Of Symptoms: Hrs Current Symptoms Are (Timing): Still Present Additional Complaint(s): 52 y/o female with a PMHx of HTN presents to the ED for headache and dizziness. Patient states she forgot to take medications today and went to visit a friend in a hospital in [place]. Patient reports she gets that way when blood pressure is elevated. Patient states her systolic blood pressure was 180 but does not remember her diastolic. Patient reports she took medications and immediately after came straight to the ED. Patient also reports of feeling palpitations. Denies chest pain, shortness of breath, vision changes, weakness, and numbness. PMD: [facility] Past Medical History Reviewed: Historical Data, Nursing Documentation, Vital Signs Vital Signs: Last Vital Signs Temp 97.8 F 09/27/17 22:33 Pulse 69 09/27/17 22:33 Resp 18 09/27/17 22:33 BP 171/109 H 09/27/17 22:33 Pulse Ox 100 09/27/17 22:33 - Medical History PMH: Diabetes, HTN, Hypercholesterolemia Denies: HIV, Chronic Kidney Disease - Surgical History Surgical History: (x2) - Family History Family History: States: Unknown Family Hx Denies: [place], CAD - Home Medications Home Medications: Ambulatory Orders Medication Instructions Recorded Losartan/Hydrochlorothiazide 1 each PO DAILY 11/18/15 [Losartan-Hctz 100-25 mg Tab] Atorvastatin [Lipitor] 40 mg PO DAILY #30 tab 04/19/17 Ciprofloxacin [Cipro] 500 mg PO DAILY #1 tab 04/19/17 Pantoprazole [Protonix EC Tab] 20 mg PO DAILY #30 ect 04/19/17 metFORMIN [glucOPHAGE] 500 mg PO BID #60 tab 04/19/17 - Allergies Allergies/Adverse Reactions: Allergies Allergy/AdvReac Type Severity Reaction Status Date / Time No Known Allergies Allergy Verified 04/18/17 20:43 Review of Systems ROS Statement: Except As Marked, All Systems Reviewed And Found Negative Neurological: Positive for: Headache, Dizziness Physical Exam - Reviewed Nursing Documentation Reviewed: Yes Vital Signs Reviewed: Yes - Physical Exam Appears: Positive for: Well, No Acute Distress Head Exam: Positive for: ATRAUMATIC, NORMOCEPHALIC Skin: Positive for: Normal Color, Warm, Dry Eye Exam: Positive for: EOMI, Normal appearance, PERRL Neck: Positive for: Normal, Painless ROM, Supple Cardiovascular/Chest: Positive for: Regular Rate, Rhythm. Negative for: Murmur Respiratory: Positive for: Normal Breath Sounds. Negative for: Respiratory Distress Gastrointestinal/Abdominal: Positive for: Normal Exam, Soft. Negative for: Tenderness Back: Positive for: Normal Inspection. Negative for: L CVA Tenderness, R CVA Tenderness, Vertebral Tenderness Extremity: Positive for: Normal ROM. Negative for: Pedal Edema, Deformity Neurologic/Psych: Positive for: Alert, [employer] II-XII, Oriented. Negative for: Motor/Sensory Deficits - ECG O2 Sat by Pulse Oximetry: 100 (RA) Pulse Ox Interpretation: Normal Medical Decision Making Medical Decision Making: Time: 2250 A/P: 52 y/o female with a PMHx of HTN presents to the ED complaining of headache and palpitations after having not taken blood pressure medications. -- Patient is well appearing -- Pressure is coming down spontaneously. Currently 150/90 -- Non-ischemic EKG, Normal Sinus Rhythm, No ST/T wave changes -- Will provide medication for headache and re-evaluation. 1AM -- BP normal -- Advised patient not to forget medications in the future -- Advised close followup with PMD -- Patient well appearing, stable for discharge Scribe Attestation: Documented by Marin Recio acting as a scribe for Dr. Que Gagnon MD. Provider Scribe Attestation: All medical record entries made by the Scribe were at my direction and personally dictated by me. I have reviewed the chart and agree that the record accurately reflects my personal performance of the history, physical exam, medical decision making, and the department course for this patient. I have also personally directed, reviewed, and agree with the discharge instructions and disposition. Disposition - Clinical Impression Clinical Impression: Headache, Hypertension - Patient ED Disposition Is Patient to be Admitted: No - Disposition Referrals: Bhavik Dye MD [Family Provider] - Disposition: Routine/Home Disposition Time: 01:07 Condition: IMPROVED Instructions: High Blood Pressure in Adults, Headache, Adult Forms: [facility] (Guatemalan) Print Language: MOHAWK
[2017-09-28 01:07] VITALS: BP 140/83
--- NOTE | 2017-09-29 11:09 | CARD ---
APPROVED REPORT Date of service: 09/27/2017 EKG Measurement Heart [id number] <Conclusion> Normal sinus rhythm Normal ECG
== END 2017-09-28 01:07 | disposition home or self-care (01) ==
LOC: H.ER 22:25
DX: R51 Headache (principal); I10 Essential (primary) hypertension; E11.9 Type 2 diabetes mellitus without complications; Z79.84 Long term (current) use of oral hypoglycemic drugs; E78.00 Pure hypercholesterolemia, unspecified; R42 Dizziness and giddiness

== ENCOUNTER 2018-07-21 22:54 | Emergency (ER) | payer SELFPAY ==
[2018-07-21 22:55] VITALS: BMI 29.0
[2018-07-21] MEDS ORDERED: Sodium Chloride 0.9% 1,000 ML IV STA (23:44)
--- NOTE | 2018-07-21 23:48 | ED PDOC ---
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 Associated headache, throat pain, diarrhea. Denies ear pain, congestion, nausea/vomiting, chest pain, shortness of breath, palpitations, abdominal pain, urinary symptoms, recent travel, sick contacts. Pain reliever last taken this afternoon Past Medical History Reviewed: Historical Data, Nursing Documentation, Vital Signs Vital Signs: Last Vital Signs Temp 100.1 F H 07/21/18 23:02 Pulse 110 H 07/21/18 23:02 Resp 18 07/21/18 23:02 BP 146/91 H 07/21/18 23:02 Pulse Ox 98 07/21/18 23:02 Primary Care Provider: FAMILY PROVIDER,NO - Medical History PMH: Diabetes, HTN, Hypercholesterolemia Denies: HIV, Chronic Kidney Disease - Surgical History Surgical History: (x2) - Family History Family History: States: Unknown Family Hx Denies: SC, CAD - Home Medications Home Medications: Ambulatory Orders Medication Instructions Recorded Losartan/Hydrochlorothiazide 1 each PO DAILY 11/18/15 [Losartan-Hctz 100-25 mg Tab] Atorvastatin [Lipitor] 40 mg PO DAILY #30 tab 04/19/17 Ciprofloxacin [Cipro] 500 mg PO DAILY #1 tab 04/19/17 Pantoprazole [Protonix EC Tab] 20 mg PO DAILY #30 ect 04/19/17 metFORMIN [glucOPHAGE] 500 mg PO BID #60 tab 04/19/17 Ibuprofen [Motrin Tab] 1 tab PO Q6 PRN #20 tab 07/22/18 - Allergies Allergies/Adverse Reactions: Allergies Allergy/AdvReac Type Severity Reaction Status Date / Time No Known Allergies Allergy Verified 04/18/17 20:43 Review of Systems ROS Statement: Except As Marked, All Systems Reviewed And Found Negative Constitutional: Positive for: Fever ENT: Positive for: Throat Pain Gastrointestinal: Positive for: Diarrhea Physical Exam - Reviewed Nursing Documentation Reviewed: Yes Vital Signs Reviewed: Yes - Physical Exam Appears: Positive for: Well, Non-toxic, No Acute Distress Head Exam: Positive for: ATRAUMATIC, NORMAL INSPECTION, NORMOCEPHALIC Skin: Positive for: Normal Color Eye Exam: Positive for: Normal appearance ENT: Positive for: Normal ENT Inspection, TM Is/Are (clear bilaterally), Tonsillar Exudate, Tonsillar Swelling (R>L Uvula midline. Airway patent) Cardiovascular/Chest: Positive for: Regular Rate, Rhythm Respiratory: Positive for: Normal Breath Sounds Gastrointestinal/Abdominal: Positive for: Normal Exam Back: Positive for: Normal Inspection Extremity: Positive for: Normal ROM Neurological/Psych: Positive for: Awake, Alert, Oriented (x3) - Laboratory Results Result Diagrams: 07/22/18 00:25 07/22/18 00:30 - ECG O2 Sat by Pulse Oximetry: 98 - Progress ED Course And Treament: -cbc -cmp -rapid strep -influenza -lactic acid -IV NS bolus -IV toradol -IV decadron PROCEDURE: CT SOFT TISSUE NECK WITH CONTRAST REASON FOR EXAM: Fever, throat pain. TECHNIQUE: The patient was scanned in a multi-detector CT scanner. High resolution transaxial imaging was performed following intravenous administration of contrast material. Sagittal and coronal images were reconstructed. COMPARISON: None. FINDINGS: Chronic benign mucous retention cyst in the right maxillary sinus. Moderate hypertrophy of the adenoids, probably reactive inflammatory finding. Moderate hypertrophy of the tonsils suggestive of bilateral acute tonsillitis without fluid collection or drainable abscess formation. No critical airway narrowing. Mildly enlarged reactive cervical lymph nodes the largest measuring 1.3 cm. Normal bilateral parotid glands. Normal bilateral puppet master spaces. Normal bilateral parapharyngeal spaces. Normal bilateral carotid spaces. Normal bilateral sublingual and submandibular glands. Normal retropharyngeal space. Normal perivertebral space. Normal epiglottis, bilateral vallecula and hypopharynx. The pre-epiglottic and paraglottic adipose spaces are normal. Normal visualized bilateral piriform sinuses, aryepiglottic folds, vocal cords, and arytenoid-cricoid articulations. Normal subglottic trachea. Normal bilateral lobes of the thyroid gland. Normal visualized pulmonary apices. Normal remaining visualized paranasal sinuses. Normal visualized cervical spine. IMPRESSION: Chronic benign mucous retention cyst in the right maxillary sinus. Moderate hypertrophy of the adenoids, probably reactive inflammatory finding. Moderate hypertrophy of the tonsils suggestive of bilateral acute tonsillitis without fluid collection or drainable abscess formation. No critical airway narrowing. Mildly enlarged reactive cervical lymph nodes the largest measuring 1.3 cm Patient states she is feeling better on re-eval. Patient educated on findings, discharged with rx ibuprofen Advised increase fluid intake, rest. Follow up PMD within 2-3 days Return precautions given Disposition - Clinical Impression Clinical Impression: Viral pharyngitis, Tonsillitis - Patient ED Disposition Is Patient to be Admitted: No Counseled Patient/Family Regarding: Studies Performed, Diagnosis, Need For Fol lowup, Rx Given - Disposition Disposition: Routine/Home Disposition Time: 03:39 Condition: IMPROVED Prescriptions: Ibuprofen [Motrin Tab] 1 tab PO Q6 PRN #20 tab PRN Reason: Pain, Moderate (4-7) Instructions: Viral Pharyngitis Print Language: YI
[2018-07-22 00:30] LABS: BASO # 0.1 K/uL (0.0-0.2); BASO % 0.8 % (0.0-2.0); EOS % 0.1 % (0.0-4.0); HEMOGLOBIN 12.8 g/dL (12.0-16.0); LYMPH # 1.9 K/uL (1.0-4.3); LYMPH % 15.7 % (20.0-40.0); MEAN CELL VOLUME 89.5 fl (81.0-99.0); MEAN CORPUSCULAR HEMOGLOBIN 30.3 pg (27.0-31.0); MEAN CORPUSCULAR HGB CONC 33.8 g/dL (33.0-37.0); MEAN PLATELET VOLUME 9.3 fl (7.2-11.7); MONO # 0.6 K/uL (0.0-0.8); NEUT # 9.6 K/uL (1.8-7.0); NEUT % 78.4 % (50.0-75.0); RBC 4.23 Mil/uL (3.80-5.20); RED CELL DISTRIBUTION WIDTH 13.4 % (11.5-14.5); WHITE BLOOD COUNT 12.3 K/uL (4.8-10.8)
[2018-07-22 00:39] LABS: SQUAMOUS EPITHIAL 8 /hpf (0-5); URINE BACTERIA MOD (<OCC); URINE BILIRUBIN NEGATIVE (NEGATIVE); URINE BLOOD NEGATIVE (NEGATIVE); URINE CLARITY SLIGHTY-CLOUDY (Clear); URINE COLOR YELLOW (YELLOW); URINE GLUCOSE (UA) NEG (NEGATIVE); URINE LEUKOCYTE ESTERASE TRACE Leu/uL (Negative); URINE PROTEIN 30 mg/dL (NEGATIVE); URINE UROBILINOGEN 0.2-1.0 mg/dL (0.2-1.0)
[2018-07-22 00:45] LABS: ALB/GLOB RATIO 1.3 (1.0-2.1); ALBUMIN 4.4 g/dL (3.5-5.0); ALT/SGPT 37 U/L (9-52); AST/SGOT 26 U/L (14-36); BLOOD UREA NITROGEN 10 mg/dl (7-17); CALCIUM 8.9 mg/dL (8.4-10.2); GFR NON-AFRICAN AMERICAN > 60
[2018-07-22] MEDS ORDERED: Iohexol 300 100 ML IJ ONE (02:17)
[2018-07-22] MEDS ORDERED: Sodium Chloride 0.9% 50 ML IV ONE (02:17)
[2018-07-22 02:52] VITALS: BP 131/81; PULSE 93; RESP 17; TEMP 98
[2018-07-22 03:39] VITALS: O2SAT 98
--- NOTE | 2018-07-22 09:53 | CT ---
Date of service: 07/22/2018 PROCEDURE: CT NECK WITH CONTRAST HISTORY: fever, throat pain COMPARISON: None available. TECHNIQUE: CT of the neck with intravenous contrast. Coronal and sagittal reformats generated. Intravenous contrast dose: 95 cc of Omnipaque 300 intravenously. Radiation dose: Total exam DLP = 286.99 mGy-cm. This CT exam was performed using one or more of the following dose reduction techniques: Automated exposure control, adjustment of the mA and/or kV according to patient size, and/or use of iterative reconstruction technique. FINDINGS: NASOPHARYNX: Mild to moderate thickening of the nasopharynx likely represent adenoids hypertrophy. SUPRAHYOID NECK: Moderate enlargement of the palatine tonsils suggestive of tonsillitis. No evidence of abscess formation. Otherwise unremarkable oropharynx, oral cavity, parapharyngeal space and retropharyngeal space. INFRAHYOID NECK: Unremarkable larynx, hypopharynx, and supraglottic space. Vocal cords intact. MASS: None. GLANDS: Parotid and submandibular glands unremarkable. Normal size thyroid gland, without nodule. LYMPH NODES: Mildly enlarged lymph nodes in the mid and upper neck are noted likely reactive. CERVICAL SPINE: No fracture or focal lesion. VASCULAR STRUCTURES: Unremarkable. OTHER FINDINGS: None. IMPRESSION: [id number] nasopharynx adenoids hypertrophy. [id number] enlargement of the tonsils suggestive of tonsillitis. No evidence of abscess formation. Mildly enlarged upper neck lymph nodes likely reactive. 1.8 centimeter mucosal retention cyst at the right maxillary sinus. Preliminary report was submitted by [facility] Radiology contains concordant findings.
== END 2018-07-22 03:49 | disposition home or self-care (01) ==
LOC: H.ER 22:54
DX: J03.90 Acute tonsillitis, unspecified (principal); E11.9 Type 2 diabetes mellitus without complications; E78.00 Pure hypercholesterolemia, unspecified; Z79.84 Long term (current) use of oral hypoglycemic drugs; I10 Essential (primary) hypertension
CPT/HCPCS: 70491; 80053; 81003; 83605; 85025; 87040; 87070; 87086; 87430; 87804; 99282; J1100; J1885; J7030; Q9967